=== PATIENT | female | born 1980 | race African-American/Black ===

== ENCOUNTER 2021-07-06 14:07 | Emergency (ER) | payer SELFPAY ==
[~2021-07-06] VITALS: Ht 170.2 cm; Wt 119.3 kg
--- NOTE | 2021-07-06 14:32 | PHYS DOC ---
General Adult EDM: Chief Complaint: CHEST PAIN HPI: HPI: Patient is a 41 year old female who presents with chronic intermittent chest tightness for the last 6 months. She states that she has been more stressed lately she does get anxiety. She states that usually comes and goes within 5 minutes. 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 She is a smoker and obese. She denies any other past medical history. She denies any pertinent family history. Currently denies any discomfort or pain. Patient denies shortness of breath, dizziness, headache, fever, cough, abdominal pain, nausea, vomiting, diarrhea, focal weakness, numbness or tingling, vision change. (KALEB GARCIA APRN) Review of Systems: Review of Systems: Constitutional: Denies fever or chills. [] Eyes: Denies change in visual acuity. [] HENT: Denies nasal congestion or sore throat. [] Respiratory: Denies cough or shortness of breath. [] Cardiovascular: + chest pain or denies edema. +palpitations [] GI: Denies abdominal pain, nausea, vomiting, bloody stools or diarrhea. [] : Denies dysuria. [] Musculoskeletal: Denies back pain or joint pain. [] Integument: Denies rash. [] Neurologic: Denies headache, focal weakness or sensory changes. [] Endocrine: Denies polyuria or polydipsia. [] Lymphatic: Denies swollen glands. [] Psychiatric: Denies depression or anxiety. [] (KALEB GARCIA APRN) Heart Score: C/O Chest Pain: Yes HEART Score for Chest Pain: HEART Score for Chest Pain Response (Comments) Value History Slighlty/Non-Suspicious 0 ECG Normal 0 Age < 45 0 Risk Factors 1 or 2 Risk Factors 1 Troponin < Normal Limit 0 Total 1 Risk Factors: Risk Factors: DM, Current or recent (<one month) smoker, HTN, HLP, family history of CAD, obesity. Risk Scores: Score 0 - 3: 2.5% MACE over next 6 weeks - Discharge Home Score 4 - 6: 20.3% MACE over next 6 weeks - Admit for Clinical Observation Score 7 - 10: 72.7% MACE over next 6 weeks - Early Invasive Strategies (KALEB GARCIA APRN) Current Medications: Current Medications Medications (Trade) Dose Ordered Sig/Marti Start Time Stop Time Status Last Admin Dose Admin Aspirin ([place] Aspirin) 325 mg 1X ONCE 07/06/21 14:30 07/06/21 14:31 UNV Sodium Chloride 1,000 ml @ 1,000 mls/hr Q1H 07/06/21 14:30 07/06/21 15:29 UNV (KALEB GARCIA APRN) Physical Exam: PE: Constitutional: Well developed, well nourished, no acute distress, non-toxic appearance. [] HENT: Normocephalic, atraumatic, bilateral external ears normal, oropharynx moist, no oral exudates, nose normal. [] Eyes: PERRLA, EOMI, conjunctiva normal, no discharge. [] Neck: Normal range of motion, no tenderness, supple, no stridor. [] Cardiovascular:Heart rate regular rhythm, no murmur [] Lungs & Thorax: Bilateral breath sounds clear to auscultation [] Abdomen: Bowel sounds normal, soft, no tenderness, no masses, no pulsatile masses. [] Skin: Warm, dry, no erythema, no rash. [] Back: No tenderness, no CVA tenderness. [] Extremities: No tenderness, no cyanosis, no clubbing, ROM intact, no edema. [] Neurologic: Alert and oriented X 3, normal motor function, normal sensory function, no focal deficits noted. [] Psychologic: Affect normal, judgement normal, mood normal. [] Normal physical exam (KALEB GARCIA APRN) EKG: EK AND READ BY DR MARCOS SINUS RHYTHM AND NO STEMI [address] MARCOS SINUS RHYTM AND NO STEMI (KALEB GARCIA APRN) Radiology/Procedures: Radiology/Procedures: [] Impression: [facility] [address] [place], [place] [id number] IMAGING REPORT Signed PATIENT: KENY COOPER ACCOUNT: [id number] : 1980 LOCATION: ER AGE: 41 SEX: F EXAM STATUS: PRE ER ORD. PHYSICIAN: KALEB GARCIA APRN REASON: INTERMITTENT CHEST PAIN X 6 MONTHS PROCEDURE: PORTABLE CHEST 1V AP chest. HISTORY: Chest pain AP view was taken of the chest. Lungs are clear. Heart is normal in size. There is no effusion. IMPRESSION: 1. No acute chest disease. Electronically signed by: Scot Alarcon MD (07/06/2021 2:40 PM) [id number] DICTATED and SIGNED BY: SCOT ALARCON MD DATE: 07/06/21 [id number] 0 (KALEB GARCIA APRN) Course & Med Decision Making: Course & Med Decision Making Pertinent Labs and Imaging studies reviewed. (See chart for details) See HPI. Alert and oriented x4. Ambulatory steady gait. Skin pink warm and dry. No peripheral edema. Lungs are clear to all station all lobes. EKG shows a normal sinus rhythm. Patient is given 325 mg aspirin. Blood work unremarkable. Heart score 1. Troponin is normal. Patient is very low risk for ACS. Patient to follow-up with primary care provider. [] (KALEB GARCIA APRN) Course & Med Decision Making I have reviewed and was available for consultation in the emergency department for this patient that was seen by midlevel provider. Agree with plan. Deandre Marcos DO (DEANDRE MARCOS DO) Eugenie Disclaimer: Eugenie Disclaimer: This electronic medical record was generated, in whole or in part, using a voice recognition dictation system. (KALEB GARCIA APRN) Departure Departure Impression: Primary Impression: Nonspecific chest pain Disposition: HOME / SELF CARE / HOMELESS Condition: STABLE Patient Instructions: Chest Pain (Nonspecific) Additional Instructions: Follow-up with primary care provider soon as possible. Drink plenty of fluids. If you begin having severe chest pain with shortness of breath or dizziness return emergency room. KALEB GARCIA APRN Jul 06, 2021 14:32 DEANDRE MARCOS DO Jul 06, 2021 16:34
--- NOTE | 2021-07-06 14:43 | RAD ---
AP chest. HISTORY: Chest pain AP view was taken of the chest. Lungs are clear. Heart is normal in size. There is no effusion. IMPRESSION: 1. No acute chest disease. Electronically signed by: Scot Alarcon MD (07/06/2021 2:40 PM) [id number]
[2021-07-06] MEDS ORDERED: ASPIRIN 325 MG TABLET PO ONE (15:15)
[2021-07-06] MEDS ORDERED: IV NORMAL SALINE 1000ML BAG 1,000 ML IV SCH (15:15)
[2021-07-06 15:17] LABS: BASO # 0.1 x10^3/uL (0.0-0.2); BASO % 1 % (0-3); EOS # 0.5 x10^3/uL (0.0-0.7); EOS % 7 % (0-3); HEMATOCRIT 37.7 % (36.0-47.0); HEMOGLOBIN 12.7 g/dL (12.0-15.5); LYMPH % 44 % (24-48); MEAN CORPUSCULAR HEMOGLOBIN 30 pg (25-35); MEAN CORPUSCULAR HGB CONC 34 g/dL (31-37); MEAN CORPUSCULAR VOLUME 89 fL (79-100); MONO # 0.5 x10^3/uL (0.0-1.1); MONO % 8 % (0-9); NEUT # 2.7 x10^3/uL (1.8-7.7); NEUT % 40 % (31-73); PLATELET COUNT 292 x10^3/uL (140-400); RED BLOOD COUNT 4.24 x10^6/uL (3.50-5.40); RED CELL DISTRIBUTION WIDTH 14.3 % (11.5-14.5); WHITE BLOOD COUNT 6.9 x10^3/uL (4.0-11.0)
[2021-07-06 15:31] LABS: CREATININE 1.3 mg/dL (0.6-1.0); GFR 54.4; POTASSIUM 3.7 mmol/L (3.5-5.1)
[2021-07-06 15:37] LABS: ALBUMIN 3.9 g/dL (3.4-5.0); ALBUMIN/GLOBULIN RATIO 1.1 (1.0-1.7); MAGNESIUM 2.3 mg/dL (1.8-2.4); TOTAL BILIRUBIN 0.3 mg/dL (0.2-1.0); TOTAL PROTEIN 7.5 g/dL (6.4-8.2)
[2021-07-06 16:05] LABS: BILIRUBIN,URINE NEGATIVE (NEG); CLARITY,URINE CLOUDY; COLOR,URINE YELLOW; NITRITE,URINE NEGATIVE (NEG); PROTEIN,URINE NEGATIVE (NEG-TRACE)
[2021-07-06 16:10] LABS: BARBITURATES NEG (NEG); BENZODIAZEPINES NEG (NEG); CANNABINOIDS NEG (NEG); COCAINE NEG (NEG); METHADONE NEG (NEG); OPIATES NEG (NEG); PHENCYCLIDINE NEG (NEG)
[2021-07-06 16:17] LABS: AMPHETAMINE/METHAMPHETAMINE NEG (NEG)
[2021-07-06 16:36] LABS: BACTERIA,URINE FEW /HPF (0-FEW); WBC,URINE >40 /HPF (0-4)
[2021-07-06 16:41] VITALS: BP 139/85
--- NOTE | 2021-07-06 17:29 | EKG ---
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
--- NOTE | 2021-07-06 17:29 | EKG ---
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
== END 2021-07-06 17:02 | disposition home or self-care (01) ==
LOC: ER 14:07
DX: R07.89 Other chest pain (principal); R00.2 Palpitations; F17.200 Nicotine dependence, unspecified, uncomplicated; E66.9 Obesity, unspecified; Z68.41 Body mass index [BMI] 40.0-44.9, adult
CPT/HCPCS: 36415; 71045; 80053; 80307; 81001; 81025; 83690; 83735; 83880; 84443; 84484; 85025; 87086; 93005; 96360; 99285; J7030; 99284